=== PATIENT | female | born 1945 | race Caucasian/White ===

== ENCOUNTER → 2017-10-22 | Outpatient (CLI) | payer OTHER, MEDICARE ==
[~2017-10-22] MED LIST: AMIT10TA PO; ATOR20TA9 PO; BENA40TA2 PO; CALC1CAP8 PO; CHOL10003 PO; FLUO20TA25 PO; HYDR-3241 PO; LATA2.5D3 EACHEYE; LEVO75TA5 PO; MELO15TA24 PO; MULT-224 PO; PANT40TA3 PO; SPIR50TA2 PO; TIMO5DRO5 EACHEYE; VITA400C42 PO
[2017-10-22 10:32] LABS: HEMATOCRIT 37.1 % (34.6-47.8); HEMOGLOBIN 12.8 g/dL (11.7-16.4); WHITE BLOOD COUNT 6.1 x10^3/uL (3.4-10)
[2017-10-22 10:41] LABS: PATH.CAST-FLAG NOT PRESENT; SPERM-FLAG NOT PRESENT; SRC-FLAG NOT PRESENT; XTAL-FLAG NOT PRESENT; YLC-FLAG NOT PRESENT
[2017-10-22 10:45] LABS: BLOOD UREA NITROGEN 17 mg/dL (7-18)
[2017-10-22 10:50] LABS: ASPARTATE AMINO TRANSFERASE 28 U/L (15-37)
== END | disposition home or self-care (01) ==
LOC: STAR 09:12
PROVIDERS: ATTEND Neurological Surgery
DX: Z01.818 Encounter for other preprocedural examination (principal); M43.10 Spondylolisthesis, site unspecified; R79.1 Abnormal coagulation profile
CPT/HCPCS: 36415; 71020; 80053; 81001; 85025; 85610; 85730; 87086; 93005

== ENCOUNTER 2017-11-05 06:04 | Inpatient (IN) | payer OTHER, MEDICARE ==
[2017-11-03 09:16] LABS: PATH.CAST-FLAG NOT PRESENT; SPERM-FLAG NOT PRESENT; SRC-FLAG NOT PRESENT; XTAL-FLAG NOT PRESENT; YLC-FLAG NOT PRESENT
[~2017-11-05] VITALS: Ht 160 cm; Wt 100.0 kg
[2017-11-05] MEDS ORDERED: BUPIVACAINE/PF 0.5% ONE ×2 (06:40→09:23)
[2017-11-05] MEDS ORDERED: THROMBIN 5,000 UNIT VIAL TP ONE (06:40)
[2017-11-05] MEDS ORDERED: BACITRACIN 50,000 UNIT ONE (06:41)
[2017-11-05] MEDS ORDERED: VANCOMYCIN 1,000 MG ONE (06:41)
[2017-11-05] MEDS ORDERED: LACTATED RINGERS 1,000 ML IV SCH (07:14)
[2017-11-05] MEDS ORDERED: LIDOCAINE 1%, 2ML SQ PRN (07:30)
[2017-11-05] MEDS ORDERED: MIDAZOLAM 1 MG/ML, 2ML ONE (07:37)
[2017-11-05] MEDS ORDERED: FENTANYL PF 100 MCG/2ML ONE ×2 (07:38→10:53)
[2017-11-05] MEDS ORDERED: PROPOFOL 50 ML ONE ×3 (07:53→09:53)
[2017-11-05 08:20] LABS: BLOOD UREA NITROGEN 13 mg/dL (7-18)
[2017-11-05] MEDS ORDERED: REMIFENTANIL 2 MG ONE (08:42)
[2017-11-05] MEDS ORDERED: PROPOFOL 10 MG/ML, 20ML ONE (09:45)
[2017-11-05] MEDS ORDERED: CEFAZOLIN 1,000 MG ONE (09:45)
[2017-11-05] MEDS ORDERED: DEXAMETHASONE 4 MG/ML, 1ML ONE (09:45)
[2017-11-05] MEDS ORDERED: SUCCINYLCHOLINE 20 MG/ML, 10ML ONE (09:45)
[2017-11-05] MEDS ORDERED: ROCURONIUM 10 MG/ML,10ML ONE (09:45)
[2017-11-05] MEDS ORDERED: ONDANSETRON 2MG/ML, 2ML ONE (09:45)
[2017-11-05] MEDS ORDERED: DIAZEPAM 5 MG/ML, 2ML IVPush PRN (10:00)
[2017-11-05] MEDS ORDERED: MIDAZOLAM 1 MG/ML, 2ML IV PRN (10:00)
[2017-11-05] MEDS ORDERED: OXYcodone 5 MG/5 ML ORAL.SOL UDC PO PRN (10:00)
[2017-11-05] MEDS ORDERED: METOPROLOL 1 MG/ML, 5ML IV PRN (10:00)
[2017-11-05] MEDS ORDERED: ONDANSETRON 2MG/ML, 2ML IVPush PRN ×2 (10:00→11:00)
[2017-11-05] MEDS ORDERED: HYDROcodone/APAP 7.5-325MG/15ML UDC PO PRN (10:00)
[2017-11-05] MEDS ORDERED: EPHEDRINE 50 MG/ML, 1ML IVPush PRN (10:00)
[2017-11-05] MEDS ORDERED: LABETALOL 5MG/ML, 20ML IV PRN (10:00)
[2017-11-05] MEDS ORDERED: PROMETHAZINE 25 MG/ML, 1ML IV PRN (10:00)
[2017-11-05] MEDS ORDERED: ALBUTEROL SULFATE 2.5 MG/3 ML NPPB PRN (10:00)
[2017-11-05] MEDS ORDERED: ACETAMINOPHEN 325 MG TABLET PO PRN (10:00)
[2017-11-05] MEDS ORDERED: hydrALAzine 20 MG/ML, 1ML IV PRN (10:00)
[2017-11-05] MEDS ORDERED: ACETAMINOPHEN 650 MG/20.3 ML UDC ONE (10:53)
[2017-11-05] MEDS ORDERED: OXYcodone 5 MG/5 ML ORAL.SOL UDC ONE (10:53)
[2017-11-05] MEDS ORDERED: HYDROmorphone PCA 30 MG/30 ML ONE (10:54)
[2017-11-05] MEDS: FENTANYL PF 100 MCG/2ML IV PRN ×2 (10:56→11:02)
[2017-11-05] MEDS ORDERED: PANTOPROZOLE 40MG TABLET PO PRN (11:00)
[2017-11-05] MEDS ORDERED: HYDROcodone/APAP 5/325 TABLET PO PRN (11:00)
[2017-11-05] MEDS ORDERED: HYDROmorphone PCA 30 MG/30 ML IV PRN (11:00)
[2017-11-05] MEDS ORDERED: TIZANIDINE 2MG TABLET PO PRN (11:00)
[2017-11-05] MEDS ORDERED: HYDROmorphone 1 MG/ML, 1ML IVPush PRN (11:00)
[2017-11-05] MEDS ORDERED: DIPHENHYDRAMINE 50 MG/ML, 1ML IVPush PRN (11:00)
[2017-11-05] MEDS ORDERED: BISACODYL 10 MG SUPP PR PRN (11:00)
[2017-11-05] MEDS ORDERED: PHARMACY MAY ADJ FOR RENAL FX MC PRN (11:00)
[2017-11-05] MEDS ORDERED: PROMETHAZINE 25 MG/ML, 1ML IM PRN (11:00)
[2017-11-05] MEDS ORDERED: MEPERIDINE/PF 100 MG/ML IM PRN (11:00)
[2017-11-05] MEDS ORDERED: HYDROmorphone 2 MG/ML, 1ML ONE (11:20)
[2017-11-05] MEDS: HYDROmorphone 1 MG/ML, 1ML IV PRN ×2 (11:23→11:30)
[2017-11-05] MEDS: NS + 20MEQ KCL 1,000 ML IV SCH (15:45)
[2017-11-05] MEDS: CEFAZOLIN PMX 1GM/50ML 50 ML IVPB SCH (15:45)
[2017-11-05 19:55] VITALS: BP 108/57
[2017-11-05] MEDS: LATANOPROST OPHTH 0.005%, 2.5ML EACHEYE SCH (20:23)
[2017-11-05] MEDS: ATORVASTATIN 20 MG TABLET PO SCH (20:23)
[2017-11-05] MEDS: SODIUM CHLORIDE FLUSH 10ML SYR IVF SCH (20:23)
[2017-11-05] MEDS: AMITRIPTYLINE 10 MG TABLET PO SCH (20:23)
[2017-11-06] VITALS (11 sets, daily range): BP systolic 76–131; BP diastolic 37–65
[2017-11-06] MEDS: CEFAZOLIN PMX 1GM/50ML 50 ML IVPB SCH (00:11)
[2017-11-06] MEDS: NS + 20MEQ KCL 1,000 ML IV SCH ×2 (01:27→11:16)
[2017-11-06 05:38] LABS: HEMATOCRIT 26.1 % (34.6-47.8); HEMOGLOBIN 8.8 g/dL (11.7-16.4); WHITE BLOOD COUNT 16.5 x10^3/uL (3.4-10)
[2017-11-06 05:46] LABS: BLOOD UREA NITROGEN 15 mg/dL (7-18)
[2017-11-06] MEDS: LEVOTHYROXINE 75 MCG TABLET PO SCH (06:57)
[2017-11-06] MEDS: SODIUM CHLORIDE FLUSH 10ML SYR IVF SCH ×2 (08:48→21:00)
[2017-11-06] MEDS: BENAZEPRIL 20 MG TABLET PO SCH (08:49)
[2017-11-06] MEDS: TIMOLOL OPHTH 0.5%, 5ML EACHEYE SCH (08:49)
[2017-11-06] MEDS: SPIRONOLACTONE 50 MG TABLET PO SCH (08:49)
[2017-11-06] MEDS: SENNA/DOCUSATE TABLET PO SCH (08:50)
[2017-11-06] MEDS: FLUOXETINE 20 MG CAPSULE PO SCH (08:50)
[2017-11-06] MEDS: OXYcodone/APAP 10/325MG TABLET PO PRN ×2 (10:18→20:30)
[2017-11-06] MEDS: TIZANIDINE 4MG TABLET PO SCH ×2 (10:18→17:13)
[2017-11-06] MEDS: AMITRIPTYLINE 10 MG TABLET PO SCH (20:29)
[2017-11-06] MEDS: ATORVASTATIN 20 MG TABLET PO SCH (20:29)
[2017-11-06] MEDS: LATANOPROST OPHTH 0.005%, 2.5ML EACHEYE SCH (20:30)
[2017-11-06] MEDS: HYDROmorphone 1 MG/ML, 1ML IV PRN ×2 (21:50→22:16)
[2017-11-07] VITALS (10 sets, daily range): BP systolic 82–121; BP diastolic 38–73
[2017-11-07] MEDS: OXYcodone/APAP 10/325MG TABLET PO PRN ×6 (00:32→22:56)
[2017-11-07] MEDS: TIZANIDINE 4MG TABLET PO SCH ×3 (01:30→17:20)
[2017-11-07] MEDS: NS + 20MEQ KCL 1,000 ML IV SCH ×2 (02:47→21:22)
[2017-11-07 05:42] LABS: HEMOGLOBIN 7.7 g/dL (11.7-16.4); WHITE BLOOD COUNT 11.8 x10^3/uL (3.4-10)
[2017-11-07 05:51] LABS: HEMATOCRIT 22.7 % (34.6-47.8)
[2017-11-07 06:08] LABS: BLOOD UREA NITROGEN 19 mg/dL (7-18)
[2017-11-07] MEDS: LEVOTHYROXINE 75 MCG TABLET PO SCH (06:11)
[2017-11-07] MEDS: BENAZEPRIL 20 MG TABLET PO SCH (07:48)
[2017-11-07] MEDS: SPIRONOLACTONE 50 MG TABLET PO SCH (07:48)
[2017-11-07] MEDS: HYDROmorphone 1 MG/ML, 1ML IV PRN (07:52)
[2017-11-07] MEDS: SODIUM CHLORIDE FLUSH 10ML SYR IVF SCH ×2 (08:40→21:23)
[2017-11-07] MEDS: SENNA/DOCUSATE TABLET PO SCH (08:41)
[2017-11-07] MEDS: FLUOXETINE 20 MG CAPSULE PO SCH (08:41)
[2017-11-07] MEDS: TIMOLOL OPHTH 0.5%, 5ML EACHEYE SCH (08:41)
[2017-11-07] MEDS ORDERED: SODIUM CHLORIDE 0.9%, 500ML IVBOLUS ONE (11:30)
[2017-11-07] MEDS: DIAZEPAM 5 MG TABLET PO PRN ×2 (11:46→17:47)
[2017-11-07] MEDS: ATORVASTATIN 20 MG TABLET PO SCH (21:21)
[2017-11-07] MEDS: AMITRIPTYLINE 10 MG TABLET PO SCH (21:21)
[2017-11-07] MEDS: LATANOPROST OPHTH 0.005%, 2.5ML EACHEYE SCH (21:22)
[2017-11-08 01:02] VITALS: BP 111/69
[2017-11-08] MEDS: TIZANIDINE 4MG TABLET PO SCH ×3 (01:30→15:05)
[2017-11-08 05:30] LABS: BLOOD UREA NITROGEN 12 mg/dL (7-18)
[2017-11-08 05:32] LABS: HEMATOCRIT 30.8 % (34.6-47.8); HEMOGLOBIN 10.6 g/dL (11.7-16.4); WHITE BLOOD COUNT 15.5 x10^3/uL (3.4-10)
[2017-11-08] MEDS: LEVOTHYROXINE 75 MCG TABLET PO SCH (06:10)
[2017-11-08] MEDS: OXYcodone/APAP 10/325MG TABLET PO PRN ×4 (06:33→21:19)
[2017-11-08] MEDS: NS + 20MEQ KCL 1,000 ML IV SCH ×2 (06:35→15:05)
[2017-11-08 06:37] VITALS: BP 142/81
[2017-11-08 07:22] LABS: DIFF TOTAL CELLS COUNTED 100 CELL DIFF; VERIFY COUNTS? YES
[2017-11-08] MEDS: TIMOLOL OPHTH 0.5%, 5ML EACHEYE SCH (08:49)
[2017-11-08] MEDS: MAGNESIUM HYDROXIDE 8%, 30ML UDC PO PRN (08:49)
[2017-11-08] MEDS: FLUOXETINE 20 MG CAPSULE PO SCH (08:50)
[2017-11-08] MEDS: SODIUM CHLORIDE FLUSH 10ML SYR IVF SCH ×2 (08:50→21:19)
[2017-11-08] MEDS: BENAZEPRIL 20 MG TABLET PO SCH (08:50)
[2017-11-08] MEDS: SPIRONOLACTONE 50 MG TABLET PO SCH (08:50)
[2017-11-08] MEDS: SENNA/DOCUSATE TABLET PO SCH (08:50)
[2017-11-08] MEDS ORDERED: BISACODYL 10 MG SUPP PR PRN (09:23)
[2017-11-08 12:49] VITALS: BP 101/66
[2017-11-08 20:24] VITALS: BP 115/71
[2017-11-08] MEDS: LATANOPROST OPHTH 0.005%, 2.5ML EACHEYE SCH (21:19)
[2017-11-08] MEDS: ATORVASTATIN 20 MG TABLET PO SCH (21:19)
[2017-11-08] MEDS: AMITRIPTYLINE 10 MG TABLET PO SCH (21:19)
[2017-11-09] MEDS: TIZANIDINE 4MG TABLET PO SCH ×2 (01:38→08:21)
[2017-11-09] MEDS: NS + 20MEQ KCL 1,000 ML IV SCH ×2 (01:39→09:21)
[2017-11-09 03:00] VITALS: BP 115/72
[2017-11-09] MEDS: OXYcodone/APAP 10/325MG TABLET PO PRN ×2 (03:18→08:19)
[2017-11-09 05:35] LABS: HEMATOCRIT 28.2 % (34.6-47.8); HEMOGLOBIN 9.6 g/dL (11.7-16.4); WHITE BLOOD COUNT 16.4 x10^3/uL (3.4-10)
[2017-11-09] MEDS ORDERED: OXYC1TAB9 PO ×2 (06:07→06:11)
[2017-11-09 06:11] LABS: DIFF TOTAL CELLS COUNTED 100 CELL DIFF
[2017-11-09] MEDS ORDERED: DIAZ5TAB4 PO (06:12)
[2017-11-09 06:14] LABS: BLOOD UREA NITROGEN 12 mg/dL (7-18)
[2017-11-09] MEDS: LEVOTHYROXINE 75 MCG TABLET PO SCH (06:25)
[2017-11-09 06:32] LABS: VERIFY COUNTS? YES
[2017-11-09 07:34] VITALS: BP 109/73
[2017-11-09] MEDS: TIMOLOL OPHTH 0.5%, 5ML EACHEYE SCH (08:19)
[2017-11-09] MEDS: SPIRONOLACTONE 50 MG TABLET PO SCH (08:20)
[2017-11-09] MEDS: FLUOXETINE 20 MG CAPSULE PO SCH (08:20)
[2017-11-09] MEDS: BENAZEPRIL 20 MG TABLET PO SCH (08:20)
[2017-11-09] MEDS: SENNA/DOCUSATE TABLET PO SCH (08:20)
[2017-11-09] MEDS: SODIUM CHLORIDE FLUSH 10ML SYR IVF SCH (08:23)
[2017-11-09] MEDS: MAGNESIUM HYDROXIDE 8%, 30ML UDC PO PRN (08:23)
[2017-11-09 11:03] VITALS: BP 98/57
== END 2017-11-09 11:30 | disposition home or self-care (01) | DRG 460 ==
LOC: ORIP 06:04 → 4NOR 12:08
PROVIDERS: ADMIT Neurological Surgery; ATTEND Neurological Surgery
PROC: 0SG00AJ Fusion of Lumbar Vertebral Joint with Interbody Fusion Device, Posterior Approach, Anterior Column, Open Approach (ICD-10-PCS; 2017-11-05)
PROC: 01NB0ZZ Release Lumbar Nerve, Open Approach (ICD-10-PCS; 2017-11-05)
PROC: 30233N1 Transfusion of Nonautologous Red Blood Cells into Peripheral Vein, Percutaneous Approach (ICD-10-PCS; principal; 2017-11-07)
DX: M48.062 Spinal stenosis, lumbar region with neurogenic claudication (principal); D64.9 Anemia, unspecified; M43.16 Spondylolisthesis, lumbar region; M51.36 Other intervertebral disc degeneration, lumbar region; M53.2X6 Spinal instabilities, lumbar region; F41.9 Anxiety disorder, unspecified; I10 Essential (primary) hypertension; E78.00 Pure hypercholesterolemia, unspecified; F32.9 Major depressive disorder, single episode, unspecified; M19.90 Unspecified osteoarthritis, unspecified site; Z86.711 Personal history of pulmonary embolism; Z88.8 Allergy status to other drugs, medicaments and biological substances; Z90.710 Acquired absence of both cervix and uterus; Z90.89 Acquired absence of other organs; Z72.89 Other problems related to lifestyle; Z82.61 Family history of arthritis; Z80.9 Family history of malignant neoplasm, unspecified; Z82.49 Family history of ischemic heart disease and other diseases of the circulatory system; Z83.3 Family history of diabetes mellitus; Z80.6 Family history of leukemia
CPT/HCPCS: 36415; 72100; 80048; 81001; 85025; 86850; 86900; 86923; 87086; 95938; 95941; C1713; C1776; J0690; J1100; J1170; J2250; J2405; J2704; J3010; J3370; J3480; J3490; C1762; J0330; J7040; J7120; P9016